=== PATIENT | female | born 1990 | race Caucasian/White ===

== ENCOUNTER 2020-11-09 01:00 | Inpatient (IN) | payer OTHER ==
[2020-11-09] MEDS ORDERED: CITRIC ACID/SODIUM CITRATE 30 ML UNIT-DOSE CUP PO ONE (01:30)
[2020-11-09] MEDS ORDERED: ELECTROLYTE-148 SOLN 500 ML IV ONE (01:30)
[2020-11-09] MEDS ORDERED: ELECTROLYTE-148 SOLN 1,000 ML IV SCH ×2 (02:00→07:45)
[2020-11-09 02:41] VITALS: BMI 44.2
[2020-11-09 05:42] LABS: HIV INTERPRETATION NEGATIVE (NEGATIVE)
[2020-11-09] MEDS ORDERED: OXYTOCIN 20 UNITS in 0.9% NS 20 UNIT/1,000 ML INFUS.BAG IV ONE (07:29)
[2020-11-09] MEDS ORDERED: METHYLERGONOVINE MALEATE 0.2 MG/1 ML AMP IM PRN (07:37)
[2020-11-09] MEDS ORDERED: SENNOSIDES/DOCUSATE COMBO (SENNA PLUS) TABLET (UD) PO PRN (07:45)
[2020-11-09] MEDS ORDERED: OXYTOCIN 20 UNITS in 0.9% NS 20 UNIT/1,000 ML INFUS.BAG IV SCH (07:45)
[2020-11-09] MEDS ORDERED: WITCH HAZEL 50% (TUCKS) 40 PAD/JAR PAD TP PRN (07:45)
[2020-11-09] MEDS ORDERED: ROCURONIUM BROMIDE 100 MG/10 ML VIAL ONE ×2 (07:55)
[2020-11-09] MEDS ORDERED: AZITHROMYCIN IVPB 500 MG/250 ML BAG IVPB ONE (08:44)
[2020-11-09] MEDS ORDERED: ACETAMINOPHEN INJECTION 100 ML IVPB ONE (08:44)
[2020-11-09] MEDS: PRENATAL VITAMINS W/ FOLIC ACID TABLET (FP) PO SCH (11:29)
[2020-11-09 11:31] LABS: CORD HCO3 23.1 mmHg (20-29); CORD pH 7.083 (7.14-7.44)
[2020-11-09 11:34] LABS: CORD HCO3 23.5 mmHg (20-29); CORD PCO2 68.3 mmHg (30-78); CORD pH 7.154 (7.14-7.44)
[2020-11-09] MEDS: IBUPROFEN 800 MG/8 ML IJ IVPB PRN (14:43)
[2020-11-09] MEDS: FERROUS SO4 325 MG TABLET (FP) PO SCH (18:45)
[2020-11-09] MEDS: BUDESONIDE/FORMETEROL FUMARATE 160/4.5 mcg INHALER IH SCH (22:39)
[2020-11-10] MEDS: IBUPROFEN 800 MG/8 ML IJ IVPB PRN (01:10)
[2020-11-10] MEDS: ONDANSETRON 4 MG/2 ML VIAL IVPUSH PRN ×3 (04:35→18:13)
[2020-11-10] MEDS ORDERED: BISACODYL 10 MG SUPP.RECT RC PRN (07:37)
[2020-11-10] MEDS ORDERED: oxyCODONE HCL 5 MG TABLET PO PRN ×2 (07:47)
[2020-11-10 08:03] LABS: BASO % 0.4 % (0-2.0); HEMATOCRIT 36.9 % (32.4-45.2); HEMOGLOBIN 12.7 GM/dL (10.7-15.3); LYMPH % 8.3 % (8-40); MCH 31.7 pg (25.7-33.7); MCHC 34.5 g/dl (32.0-36.0); MEAN PLT VOLUME 9.7 fl (7.5-11.1); MONO % 3.4 % (3.8-10.2); NEUT % 86.9 % (42.8-82.8); PLATELET COUNT 214 10^3/uL (134-434); RBC 4.01 M/mm3 (3.60-5.2); RDW 13.5 % (11.6-15.6); WHITE BLOOD COUNT 14.5 K/mm3 (4.0-10.0)
[2020-11-10] MEDS ORDERED: SCOPOLAMINE HYDROBROMIDE 1 PATCH PATCH.TD72 TD SCH (09:00)
[2020-11-10] MEDS ORDERED: METOCLOPRAMIDE HCL 10 MG TABLET (FP) PO ONE (09:10)
[2020-11-10] MEDS: BUDESONIDE/FORMETEROL FUMARATE 160/4.5 mcg INHALER IH SCH ×2 (09:47→21:35)
[2020-11-10] MEDS: SCOPOLAMINE HYDROBROMIDE 1 PATCH PATCH.TD72 TD SCH (09:48)
[2020-11-10] MEDS ORDERED: predniSONE 20 MG TABLET (UD) PO ONE (10:00)
[2020-11-10] MEDS ORDERED: LABETALOL HCL 200 MG TABLET (FP) PO STA (12:01)
[2020-11-10 14:23] LABS: URIC ACID 5.6 mg/dL (2.6-7.2)
[2020-11-10] MEDS: IBUPROFEN 600 MG TABLET (FP) PO PRN (14:37)
[2020-11-10] MEDS: NIFEdipine E.R. 30 MG TABLET PO SCH (14:37)
[2020-11-10] MEDS: PRENATAL VITAMINS W/ FOLIC ACID TABLET (FP) PO SCH (14:37)
[2020-11-10 16:31] LABS: EPI CELLS >36 /uL (0-25.1); HYALINE CASTS 5 /uL (0-3.1); URINE APPEARANCE CLOUDY; URINE BACTERIA >9,000 /uL (0-1359); URINE BILIRUBIN NEGATIVE (NEGATIVE); URINE COLOR ORANGE; URINE GLUCOSE (UA) NEGATIVE (NEGATIVE); URINE KETONE NEGATIVE (NEGATIVE); URINE LEUK ESTERASE 1+ (NEGATIVE); URINE NITRITE NEGATIVE (NEGATIVE); URINE PROTEIN 3+ (NEGATIVE); URINE RBC 10431 /uL (0-23.9); URINE WBC 337 /uL (0-25.8)
[2020-11-10] MEDS: FERROUS SO4 325 MG TABLET (FP) PO SCH (18:13)
[2020-11-10] MEDS: hydrALAZINE HCL 25 MG TABLET (FP) PO PRN (18:14)
[2020-11-10] MEDS: ACETAMINOPHEN 1000 MG/100 ML VIAL (NON FORMULARY) IVPB PRN (21:58)
[2020-11-10] MEDS: ZOLPIDEM TARTRATE 5 MG TABLET PO PRN (22:32)
[2020-11-11] MEDS: hydrALAZINE HCL 25 MG TABLET (FP) PO PRN ×3 (02:13→18:20)
[2020-11-11] MEDS: ACETAMINOPHEN 1000 MG/100 ML VIAL (NON FORMULARY) IVPB PRN ×3 (02:16→19:55)
[2020-11-11] MEDS ORDERED: ACETAMINOPHEN INJECTION 100 ML IVPB ONE (08:41)
[2020-11-11] MEDS ORDERED: predniSONE 20 MG TABLET (UD) PO ONE (10:00)
[2020-11-11] MEDS: BUDESONIDE/FORMETEROL FUMARATE 160/4.5 mcg INHALER IH SCH ×2 (10:00→21:18)
[2020-11-11] MEDS: FERROUS SO4 325 MG TABLET (FP) PO SCH ×3 (10:30→17:14)
[2020-11-11] MEDS: PRENATAL VITAMINS W/ FOLIC ACID TABLET (FP) PO SCH ×2 (10:30→15:06)
[2020-11-11] MEDS: IBUPROFEN 600 MG TABLET (FP) PO PRN (13:07)
[2020-11-11] MEDS: SIMETHICONE 80 MG TAB.CHEW (FP) PO PRN (13:09)
[2020-11-11] MEDS: ZOLPIDEM TARTRATE 5 MG TABLET PO PRN (21:19)
[2020-11-12] MEDS: IBUPROFEN 600 MG TABLET (FP) PO PRN ×3 (01:00→16:35)
[2020-11-12] MEDS: FERROUS SO4 325 MG TABLET (FP) PO SCH ×2 (09:05→16:35)
[2020-11-12] MEDS: NIFEdipine E.R. 30 MG TABLET PO SCH ×2 (09:05→09:44)
[2020-11-12] MEDS: PRENATAL VITAMINS W/ FOLIC ACID TABLET (FP) PO SCH ×2 (09:06)
[2020-11-12] MEDS: BUDESONIDE/FORMETEROL FUMARATE 160/4.5 mcg INHALER IH SCH ×2 (09:07→22:02)
[2020-11-12] MEDS: SIMETHICONE 80 MG TAB.CHEW (FP) PO PRN ×2 (09:07→16:35)
[2020-11-12 09:12] LABS: BASO % 0.5 % (0-2.0); EOS % 1.3 % (0-4.5); HEMATOCRIT 34.3 % (32.4-45.2); HEMOGLOBIN 11.7 GM/dL (10.7-15.3); MCH 31.7 pg (25.7-33.7); MCHC 34.1 g/dl (32.0-36.0); MEAN CELL VOLUME 92.9 fl (80-96); MEAN PLT VOLUME 8.9 fl (7.5-11.1); MONO % 6.3 % (3.8-10.2); NEUT % 79.9 % (42.8-82.8); PLATELET COUNT 272 10^3/uL (134-434); RDW 13.7 % (11.6-15.6); WHITE BLOOD COUNT 13.2 K/mm3 (4.0-10.0)
[2020-11-12] MEDS ORDERED: predniSONE 20 MG TABLET (UD) PO ONE (10:00)
[2020-11-12] MEDS: ZOLPIDEM TARTRATE 5 MG TABLET PO PRN (21:52)
[2020-11-13] MEDS: IBUPROFEN 600 MG TABLET (FP) PO PRN (06:16)
[2020-11-13] MEDS: SIMETHICONE 80 MG TAB.CHEW (FP) PO PRN ×2 (06:16→09:30)
[2020-11-13] MEDS: hydrALAZINE HCL 25 MG TABLET (FP) PO PRN (06:21)
[2020-11-13 09:20] VITALS: BP 135/75; PULSE 89; TEMP 98.1
[2020-11-13] MEDS: PRENATAL VITAMINS W/ FOLIC ACID TABLET (FP) PO SCH ×2 (09:31)
[2020-11-13] MEDS: NIFEdipine E.R. 30 MG TABLET PO SCH (09:31)
[2020-11-13] MEDS: FERROUS SO4 325 MG TABLET (FP) PO SCH (09:31)
[2020-11-13] MEDS: BUDESONIDE/FORMETEROL FUMARATE 160/4.5 mcg INHALER IH SCH (09:31)
[2020-11-13] MEDS ORDERED: predniSONE 5 MG TABLET (UD) PO ONE (10:00)
[2020-11-13] MEDS: SCOPOLAMINE HYDROBROMIDE 1 PATCH PATCH.TD72 TD SCH (11:35)
== END 2020-11-13 14:05 | disposition home or self-care (01) | DRG 540 ==
LOC: JLDR 01:00 → J3W 11:10
PROVIDERS: ADMIT Obstetrics & Gynecology; ATTEND Obstetrics & Gynecology
PROC: 10D00Z1 Extraction of Products of Conception, Low, Open Approach (ICD-10-PCS; principal; 2020-11-09)
DX: O34.219 Maternal care for unspecified type scar from previous cesarean delivery (principal); O16.5 Unspecified maternal hypertension, complicating the puerperium; O42.92 Full-term premature rupture of membranes, unspecified as to length of time between rupture and onset of labor; O99.52 Diseases of the respiratory system complicating childbirth; J45.909 Unspecified asthma, uncomplicated; Z37.0 Single live birth; Z3A.39 39 weeks gestation of pregnancy
CPT/HCPCS: 36415; 36600; 80048; 81003; 82570; 82803; 84156; 84450; 84460; 84550; 85025; 85032; 85610; 85730; 86780; 86850; 86900; 86901; 87389; 88307-TC; C9803; J0131; U0003; U0005

== ENCOUNTER 2020-11-20 11:17 | Emergency (ER) | payer OTHER ==
[2020-11-20 11:25] VITALS: TEMP 97.6; BMI 39.9
[2020-11-20] MEDS ORDERED: VANCOMYCIN 1 GM in D5W (PRE-DOCKED) 1,000 MG/250 ML IVPB ONE (12:35)
[2020-11-20] MEDS ORDERED: SODIUM CHLORIDE 0.9% 500 ML INFUS.BAG IV ONE (12:38)
[2020-11-20] MEDS ORDERED: ACETAMINOPHEN 1000 MG/100 ML VIAL IVPB ONE (12:38)
[2020-11-20] MEDS ORDERED: VANCOMYCIN 1 GRAM (PRE-DOCKED) 1,000 MG/250 ML BAG IVPB ONE (12:59)
[2020-11-20] MEDS ORDERED: ACETAMINOPHEN INJECTION 100 ML IVPB ONE (12:59)
[2020-11-20 13:54] LABS: BASO % 0.9 % (0-2.0); EOS % 3.1 % (0-4.5); HEMATOCRIT 37.4 % (32.4-45.2); LYMPH % 20.4 % (8-40); MCH 31.6 pg (25.7-33.7); MCHC 34.7 g/dl (32.0-36.0); MEAN PLT VOLUME 7.9 fl (7.5-11.1); MONO % 5.5 % (3.8-10.2); NEUT % 70.1 % (42.8-82.8); PLATELET COUNT 509 10^3/uL (134-434); RBC 4.11 M/mm3 (3.60-5.2); RDW 13.7 % (11.6-15.6); WHITE BLOOD COUNT 12.8 K/mm3 (4.0-10.0)
[2020-11-20 13:57] LABS: INR 1.09 (0.83-1.09); PROTHROMBIN TIME (PATIENT) 12.2 SEC (9.7-13.0)
[2020-11-20 13:59] LABS: ACTIVATED PTT 36.3 SECONDS (25.2-36.5)
[2020-11-20 14:10] LABS: CALCIUM 8.8 mg/dL (8.5-10.1)
[2020-11-20 14:11] LABS: ALBUMIN 2.6 g/dl (3.4-5.0); BLOOD UREA NITROGEN 10.8 mg/dL (7-18)
[2020-11-20 14:13] LABS: CREATININE 0.6 mg/dL (0.55-1.3)
[2020-11-20 14:15] LABS: BILIRUBIN,TOTAL 0.2 mg/dL (0.2-1); TOT PROT 7.1 g/dl (6.4-8.2)
[2020-11-20] MEDS ORDERED: CEFEPIME HCL/D5W 2 GM/50 ML BAG IVPB ONE (14:36)
[2020-11-20] MEDS ORDERED: CEFEPIME 2 GM/100 ML BAG IVPB ONE (14:51)
[2020-11-20 15:05] LABS: ANISOCYTOSIS 1+; MACROCYTOSIS 0; OVALOCYTE 1+; PLATELET ESTIMATE INCREASED
[2020-11-20 18:17] VITALS: BP 129/66; PULSE 78
== END 2020-11-20 18:17 | disposition home or self-care (01) ==
LOC: JER 11:17
PROC: 3E033GC Introduction of Other Therapeutic Substance into Peripheral Vein, Percutaneous Approach (ICD-10-PCS; principal; 2020-11-20)
DX: T81.40XA Infection following a procedure, unspecified, initial encounter (principal)
CPT/HCPCS: 36415; 74177-TC; 80053; 85025; 85610; 85730; 86850; 86900; 86901; 87040; 87070; 87076; 87077; 87186; 87205; 93005; 93010; 99285-25; C9803; J0131; Q9967; U0003; U0005